=== PATIENT | female | born 1990 | race Caucasian/White ===

== ENCOUNTER → 2020-02-12 07:46 | Outpatient (CLI) | payer OTHER, SELFPAY ==
[2020-02-12 08:06] LABS: Basophils % 0.5 % (0.1-2.0); Eosinophils # 0.1 K/mm3 (0.0-0.4); Eosinophils % 1.5 % (0.1-12.0); Hematocrit 41.2 % (37.0-47.0); Hemoglobin 13.4 g/dL (12.2-16.2); Lymphocytes # 2.8 K/mm3 (0.7-4.5); Mean Corpuscular HGB Conc 32.4 g/dL (31.8-35.4); Mean Corpuscular Hemoglobin 31.1 pg (27.0-31.2); Mean Platelet Volume 8.6 fl (7.4-10.4); Monocytes # 0.4 K/mm3 (0.1-1.0); Monocytes % 5.8 % (1.7-9.3); Neutrophils % 54.2 % (37.0-80.0); Platelet Count 251 K/mm3 (142-424); Red Cell Distribution Width 13.6 % (11.5-17.5); White Blood Count 7.3 K/mm3 (4.8-10.8)
[2020-02-12 09:07] LABS: Alanine Aminotransferase 18 U/L (12-78); Albumin Level 4.7 g/dl (3.5-5.0); Albumin/Globulin Ratio 1.5 (1.1-1.8); Alkaline Phosphatase 101 U/L (38-126); Anion Gap 12.2 mEq/L (5-15); Aspartate Amino Transferase 25 U/L (14-36); Bilirubin,Total 0.3 mg/dl (0.2-1.3); Blood Urea Nitrogen 17 mg/dl (7-17); Calcium 9.8 mg/dl (8.4-10.2); Carbon Dioxide 28 mmol/L (22.0-30.0); Chloride 102 mmol/L (98-107); Chol/HDL Ratio 1.9 (1-3.5); Cholesterol 145 mg/dl (140-200); Estimated Glomerular Filt Rate 99 ml/min (>60); GFR (African American) 120 ML/MIN (>60); Globulin 3.1 g/dL (1.3-3.2); Glucose 92 mg/dl (74-100); HDL Cholesterol 75 mg/dl (40-60); Potassium 4.2 mmoL/L (3.5-5.1); Sodium 138 mmol/L (136-145); Total Protein,Serum 7.8 g/dl (6.3-8.2); Triglycerides 47 mg/dl (30-150); VLDL Cholesterol 9 mg/dL (0-40)
[2020-02-12 09:18] LABS: Direct LDL Cholesterol 70.79 mg/dL (100-129)
[2020-02-12 09:24] LABS: T4 (Thyroxine) 9.6 ug/dl (5.53-11.0)
[2020-02-13 08:13] LABS: Iron 66 ug/dL (27-159); UIBC 204 ug/dL (131-425)
[2020-02-13 11:13] LABS: Iron Saturation 24 % (15-55); Vitamin B12 429 pg/mL (232-1245); Vitamin D 25 Hydroxy 30.9 ng/mL (30.0-100.0)
== END ==
PROVIDERS: Visit Provider Nurse Practitioner Family
DX: M79.606 Pain in leg, unspecified (principal)
CPT/HCPCS: 36415; 80053; 80061; 82607; 82652; 83540; 83550; 84436; 84443; 85025

== ENCOUNTER → 2020-02-17 15:10 | Outpatient (CLI) | payer OTHER, SELFPAY ==
[2020-02-17 16:44] LABS: Coronavirus 19 IgG Antibody Negative (Negative); Coronavirus 19 IgM Antibody Negative (Negative)
== END ==
PROVIDERS: PCP Emergency Medicine; Visit Provider Emergency Medicine
DX: Z03.818 Encounter for observation for suspected exposure to other biological agents ruled out (principal)
CPT/HCPCS: 36415; 86328

== ENCOUNTER → 2020-02-24 08:12 | Outpatient (CLI) | payer OTHER, SELFPAY ==
--- NOTE | 2020-02-24 08:15 | CT_ITS ---
PROCEDURE: CT HEAD/BRAIN WO CON CLINICAL INDICATION: dizzy COMPARISON: No exams were available for comparison TECHNIQUE: Axial images obtained. All CT scans at the facility use one or more dose reduction, viz: automated exposure control, ma/kV adjustment per patient size (including targeted exams where dose is matched to indication, i.e. head), or iterative reconstruction technique. FINDINGS: No midline shift, mass effect, intracranial hemorrhage, hydrocephalus, or extra-axial fluid collection is evident. The calvarium has an unremarkable appearance. No mastoid effusion. No sinus air-fluid level. IMPRESSION: No acute intracranial finding Dictated by: Tai López MD 02/24/2020 08:57 Electronically signed by Tai López MD in [facility] 02/24/2020 08:57
== END ==
PROVIDERS: PCP Emergency Medicine; Visit Provider Nurse Practitioner Family
DX: R42 Dizziness and giddiness (principal); M25.562 Pain in left knee
CPT/HCPCS: 70450

== ENCOUNTER → 2020-03-10 07:19 | Outpatient (CLI) | payer OTHER, SELFPAY ==
--- NOTE | 2020-03-10 07:23 | XR_ITS ---
PROCEDURE: XR KNEE RT 4V CLINICAL INDICATION: knee pain COMPARISON: No exams were available for comparison FINDINGS: No fracture or dislocation. No lytic or blastic change. There is normal mineralization. The joint spaces are well-preserved. No significant degenerative/arthritic changes. No erosive changes evident. Other findings:None. IMPRESSION: No acute findings. Dictated by: Eric Escobar 03/10/2020 09:35 Electronically signed by Eric Escobar in [facility] 03/10/2020 09:35
== END ==
PROVIDERS: PCP Nurse Practitioner Family; Visit Provider Nurse Practitioner Family
DX: M25.561 Pain in right knee (principal)
CPT/HCPCS: 73564

== ENCOUNTER → 2020-03-22 15:18 | Outpatient (CLI) | payer OTHER, SELFPAY ==
[2020-03-22 16:42] LABS: Ferritin 12.1 ng/ml (6.24-137)
== END ==
PROVIDERS: Visit Provider Nurse Practitioner Family
DX: E83.10 Disorder of iron metabolism, unspecified (principal); G25.81 Restless legs syndrome; G47.9 Sleep disorder, unspecified; R53.83 Other fatigue
CPT/HCPCS: 36415; 82728

== ENCOUNTER → 2020-04-04 15:36 | Outpatient (CLI) | payer OTHER, SELFPAY ==
--- NOTE | 2020-04-04 15:41 | US_ITS ---
PROCEDURE: US EXTREMITY RT LIMITED CLINICAL INDICATION: cyst below rt knee Palpable abnormality medial right knee COMPARISON: No exams were available for comparison FINDINGS: Ultrasound performed of the medial aspect of the right knee shows no obvious cystic or solid lesions. IMPRESSION: Unremarkable ultrasound of medial right knee. If there is indeed a palpable abnormality then CT or MRI may provide further evaluation Dictated by: Tai López MD 04/04/2020 16:20 Electronically signed by Tai López MD in [facility] 04/04/2020 16:20
== END ==
PROVIDERS: PCP Nurse Practitioner Family; Visit Provider Nurse Practitioner Family
DX: M25.561 Pain in right knee (principal)
CPT/HCPCS: 76882

== ENCOUNTER → 2020-04-22 10:44 | Outpatient (CLI) | payer BC, OTHER, SELFPAY | PROVIDERS: PCP Nurse Practitioner Family; Visit Provider Nurse Practitioner Family | DX: G47.9 Sleep disorder, unspecified (principal); G25.81 Restless legs syndrome; R53.83 Other fatigue; E83.10 Disorder of iron metabolism, unspecified | CPT/HCPCS: 95806 ==

== ENCOUNTER → 2020-04-29 07:58 | Outpatient (CLI) | payer BC, OTHER, SELFPAY ==
--- NOTE | 2020-04-29 08:05 | MR_ITS ---
PROCEDURE: MR KNEE RT WO CON CLINICAL INDICATION: evaluate for meniscal tear/ injury Entire knee pain. Lump on medial side of knee, put marker on knot. Knee instability. [id number]. X-ray 03-10-20 COMPARISON: CR XR KNEE RT 4V from 03/10/2020 TECHNIQUE: Routine multiplanar multi echo sequences are performed without gadolinium enhancement. FINDINGS: The cruciate ligaments, collateral ligaments patellar tendon, and quadriceps tendon have an unremarkable appearance. No evidence of meniscal tear. The patellar cartilage is well preserved. A marker is placed along the medial aspect of the knee denoting an area palpable concern. Just deep to this area there is a slightly prominent superficial vein. This could account for the palpable abnormality. No other abnormalities are evident. No significant degenerative change. No bone marrow edema or significant effusion. IMPRESSION: 1. No evidence of internal derangement. Essentially negative MRI the knee. 2. Palpable abnormality may correspond to a mildly prominent superficial vein. Dictated by: Tai López MD 04/30/2020 09:09 Tai López MD in [facility] 04/30/2020 09:09
== END ==
PROVIDERS: PCP Nurse Practitioner Family; Visit Provider Orthopaedic Surgery
DX: M25.561 Pain in right knee (principal); S83.241A Other tear of medial meniscus, current injury, right knee, initial encounter; G89.29 Other chronic pain
CPT/HCPCS: 73721

== ENCOUNTER → 2020-09-06 11:54 | Outpatient (CLI) | payer OTHER, SELFPAY ==
[2020-09-06 12:22] LABS: Basophils # 0.1 K/mm3 (0-0.2); Basophils % 0.8 % (0.1-2.0); Eosinophils # 0.1 K/mm3 (0.0-0.4); Eosinophils % 1.1 % (0.1-12.0); Hematocrit 47.1 % (37.0-47.0); Lymphocytes % 32.7 % (10-50); Mean Corpuscular HGB Conc 31.8 g/dL (31.8-35.4); Mean Corpuscular Hemoglobin 30.9 pg (27.0-31.2); Mean Corpuscular Volume 97.1 fl (81-99); Mean Platelet Volume 8.7 fl (7.4-10.4); Monocytes # 0.4 K/mm3 (0.1-1.0); Monocytes % 6.1 % (1.7-9.3); Neutrophils # 3.7 K/mm3 (1.8-7.8); Neutrophils % 59.3 % (37.0-80.0); Platelet Count 243 K/mm3 (142-424); Red Blood Count 4.85 M/mm3 (4.20-5.40); Red Cell Distribution Width 13.7 % (11.5-17.5); White Blood Count 6.2 K/mm3 (4.8-10.8)
[2020-09-06 12:51] LABS: HCG Qualitative, Serum Negative (Negative)
[2020-09-06 13:24] LABS: Coronavirus 19 IgG Antibody Negative (Negative); Coronavirus 19 IgM Antibody Negative (Negative)
== END ==
PROVIDERS: Visit Provider Otolaryngology
DX: Z01.818 Encounter for other preprocedural examination (principal); Z03.818 Encounter for observation for suspected exposure to other biological agents ruled out; D49.2 Neoplasm of unspecified behavior of bone, soft tissue, and skin
CPT/HCPCS: 36415; 84703; 85025; 86328

== ENCOUNTER → 2020-11-09 13:27 | Outpatient (CLI) | payer OTHER, SELFPAY ==
[2020-11-09 14:40] LABS: Basophils # 0.1 K/mm3 (0-0.2); Basophils % 0.8 % (0.1-2.0); Eosinophils # 0.1 K/mm3 (0.0-0.4); Eosinophils % 0.8 % (0.1-12.0); Hematocrit 44.7 % (37.0-47.0); Hemoglobin 14.2 g/dL (12.2-16.2); Lymphocytes # 2.1 K/mm3 (0.7-4.5); Lymphocytes % 25.9 % (10-50); Mean Corpuscular HGB Conc 31.8 g/dL (31.8-35.4); Mean Corpuscular Hemoglobin 30.5 pg (27.0-31.2); Mean Corpuscular Volume 95.8 fl (81-99); Mean Platelet Volume 9.1 fl (7.4-10.4); Monocytes # 0.5 K/mm3 (0.1-1.0); Monocytes % 6.2 % (1.7-9.3); Neutrophils # 5.3 K/mm3 (1.8-7.8); Neutrophils % 66.3 % (37.0-80.0); Platelet Count 255 K/mm3 (142-424); Red Blood Count 4.67 M/mm3 (4.20-5.40); Red Cell Distribution Width 14.2 % (11.5-17.5)
[2020-11-09 15:51] LABS: HCG Qualitative, Serum Negative (Negative)
[2020-11-09 18:08] LABS: Coronavirus 19 IgG Antibody Positive (Negative); Coronavirus 19 IgM Antibody Negative (Negative)
== END ==
PROVIDERS: Visit Provider Otolaryngology
DX: Z01.818 Encounter for other preprocedural examination (principal); Z20.822 Contact with and (suspected) exposure to COVID-19; Z86.16 Personal history of COVID-19; D49.2 Neoplasm of unspecified behavior of bone, soft tissue, and skin
CPT/HCPCS: 36415; 84703; 85025; 86328

== ENCOUNTER 2020-11-10 07:04 | Day surgery (SDC) | payer OTHER, SELFPAY ==
[2020-11-03 10:23] VITALS: BMI 25.5
[2020-11-10 07:17] VITALS: BP 110/70; PULSE 90; RESP 18; TEMP 36.2; O2SAT 99
--- NOTE | 2020-11-10 08:15 | HMH.ANESCL ---
[facility] Anesthesia Checklist - Structural Data Admitted From: Home Planned Operative Procedure/s: excision neoplasm face Consent for Planned Operative Procedure(s) Verified: Yes - Additional verifications Anesthesia Reactions: No Hx Blood Transfusions: No Blood Transfusion Reaction: No - Airway Assessment C-Spine Mobility Assessed: Yes TMJ Mobility Assessed: Yes Dentition: Good Dentition - Neurological Assessment Level of Consciousness: Awake, Alert, Appropriate - Anesthesia Plan Anesthesia Risk discussed: Yes Anesthesia Plan: Verified ASA Class: I Anesthesia Type: MAC [facility] History I have reviewed the patient's past medical history: Yes Medical History: Reports:: Anxiety Denies:: Cancer, Diabetes Mellitus Type 1, Diabetes Mellitus Type 2, Internal Pacemaker, MRSA, Seizures *Have you ever received a pneumonia vaccine?: No *Have you received a flu vaccine this season?: No Other Medical History: Reports: Anemia, Other. Denies: Blood Transfusion Reaction Anesthesia experience/problems:: none Laterality Cases: Bilateral: Tonsillectomy Other Surgeries: Yes: Cholecystectomy, Other. No: Pacemaker Amputation: No Fractures: No - *Social History Last grade of school completed: Some college Smoking Status: Never smoker Alcohol Intake: current Alcohol Intake Frequency:: holidays/special occasions only Substance Use Type: denies use *Occupational Status:: unemployed Housing: house Household Members: children *Travel in the last 8 weeks: None - Psychiatric History Pschychiatric History:: Reports:: Anxiety Family Hx:: Cancer, Coronary Artery Disease, Heart Attack, Hyperlipidemia, Hypertension, Kidney Disease, Stroke, Thyroid Disorder, Substance abuse, Alcoholism, Mental illness
--- NOTE | 2020-11-10 08:55 | P.OP_ITS ---
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 The lesion was located on the upper part of the right cheek just below the right lower eyelid the lesion was marked out and the shahrzad out was incised and the lesion was excised and submitted. Bleeding was stopped with bipolar cautery. Blood loss was less than 2 cc. Anterior and posterior incisions were made and a tissue rearrangement geometric plastic repair was done with 5-0 nylon sutures. Surgicel dressing was applied. Patient tolerated the procedure well and was sent to recovery in good general condition. Condition: stable Disposition: PACU Complications:: none
[2020-11-10 08:57] VITALS: BP 98/65; PULSE 89; RESP 18; TEMP 36.5; O2SAT 99
[2020-11-10 09:07] VITALS: BP 132/79; PULSE 87; RESP 18; O2SAT 98
[2020-11-10 09:22] VITALS: BP 101/62; PULSE 86; RESP 18; O2SAT 97
== END 2020-11-10 09:26 | disposition home or self-care (01) ==
LOC: OR 07:05
PROVIDERS: PCP Nurse Practitioner Family; Visit Provider Otolaryngology
PROC: (CPT 14040; principal; 2020-11-10 08:30)
DX: C44.319 Basal cell carcinoma of skin of other parts of face (principal); F41.9 Anxiety disorder, unspecified; D64.9 Anemia, unspecified; Z80.9 Family history of malignant neoplasm, unspecified; Z82.3 Family history of stroke; Z82.49 Family history of ischemic heart disease and other diseases of the circulatory system; Z83.438 Family history of other disorder of lipoprotein metabolism and other lipidemia; Z84.1 Family history of disorders of kidney and ureter; Z81.1 Family history of alcohol abuse and dependence; Z79.899 Other long term (current) drug therapy
CPT/HCPCS: 14040; 96374; 96375

== ENCOUNTER 2020-11-24 12:59 | Emergency (ER) | payer OTHER, SELFPAY ==
--- NOTE | 2020-11-24 13:14 | PC.NURSE ---
Patient came to have sutures removed for right side of face just undereye and had small square bandaid in place, Patient reported that one of the stitches had fell out and she only had two sutures, Upon removing the bandaid noted small wet scabbing stuck to bandaid with both sutures out and stuck to the bandaid and small open area on face no sutures where in tack to be removed they was in moist scabbing that was stuck to the pad of the bandaid had been in place for about [address] Tee office and spoke with staff to inform them of finding and going to place small strip on area to help with healing. and office staff advised patient to followup on Saturday for re-evaluation
[2020-11-24 13:20] VITALS: BP 119/77; PULSE 96; RESP 14; TEMP 36.6; O2SAT 99; BMI 25.5
[2020-11-24 13:29] VITALS: BP 120/78; PULSE 90; RESP 16; TEMP 36.6
== END 2020-11-24 13:44 | disposition home or self-care (01) ==
LOC: UTC 13:02
PROVIDERS: Emergency Provider Nurse Practitioner; PCP Nurse Practitioner Family
DX: C44.319 Basal cell carcinoma of skin of other parts of face (principal)

== ENCOUNTER → 2021-10-04 12:33 | Outpatient (CLI) | payer OTHER, SELFPAY | PROVIDERS: Visit Provider Nurse Practitioner | DX: Z20.822 Contact with and (suspected) exposure to COVID-19 (principal) | CPT/HCPCS: 87086; 87088; 87186; C9803; U0003; U0005 ==

== ENCOUNTER → 2021-10-04 18:26 | Outpatient (CLI) | payer OTHER, SELFPAY | PROVIDERS: Visit Provider Nurse Practitioner Family | DX: N39.0 Urinary tract infection, site not specified (principal); B96.20 Unspecified Escherichia coli [E. coli] as the cause of diseases classified elsewhere | CPT/HCPCS: 87086; 87088; 87186 ==

== ENCOUNTER → 2021-12-05 14:18 | Outpatient (CLI) | payer OTHER, SELFPAY ==
[2021-12-05 15:04] LABS: Basophils # 0.1 K/mm3 (0-0.2); Eosinophils # 0.1 K/mm3 (0.0-0.4); Hematocrit 44.5 % (37.0-47.0); Hemoglobin 14.1 g/dL (12.2-16.2); Lymphocytes # 2.4 K/mm3 (0.7-4.5); Lymphocytes % 30.2 % (10-50); Mean Corpuscular HGB Conc 31.7 g/dL (31.8-35.4); Mean Corpuscular Hemoglobin 30.6 pg (27.0-31.2); Mean Corpuscular Volume 96.6 fl (81-99); Mean Platelet Volume 9.1 fl (7.4-10.4); Monocytes # 0.5 K/mm3 (0.1-1.0); Monocytes % 6.9 % (1.7-9.3); Neutrophils # 4.8 K/mm3 (1.8-7.8); Neutrophils % 60.9 % (37.0-80.0); Platelet Count 281 K/mm3 (142-424); Red Cell Distribution Width 13.7 % (11.5-17.5); White Blood Count 7.9 K/mm3 (4.8-10.8)
[2021-12-05 16:16] LABS: Alanine Aminotransferase 26 U/L (12-78); Albumin Level 4.2 g/dl (3.5-5.0); Albumin/Globulin Ratio 1.6 (1.1-1.8); Alkaline Phosphatase 91 U/L (38-126); Anion Gap 9.2 mEq/L (5-15); Aspartate Amino Transferase 29 U/L (14-36); Bilirubin,Total 0.3 mg/dl (0.2-1.3); Blood Urea Nitrogen 13 mg/dl (7-17); Calcium 9.5 mg/dl (8.4-10.2); Carbon Dioxide 31 mmol/L (22.0-30.0); Chloride 104 mmol/L (98-107); Chol/HDL Ratio 2.8 (1-3.5); Cholesterol 175 mg/dl (140-200); Estimated Glomerular Filt Rate 84 ml/min (>60); GFR (African American) 101 ML/MIN (>60); Globulin 2.7 g/dL (1.3-3.2); Glucose 91 mg/dl (74-100); HDL Cholesterol 63 mg/dl (40-60); Potassium 4.2 mmoL/L (3.5-5.1); Sodium 140 mmol/L (136-145); Total Protein,Serum 6.9 g/dl (6.3-8.2); Triglycerides 97 mg/dl (30-150); VLDL Cholesterol 19 mg/dL (0-40)
[2021-12-05 16:27] LABS: Direct LDL Cholesterol 77.27 mg/dL (100-129)
[2021-12-05 16:33] LABS: T4 (Thyroxine) 7.6 ug/dl (5.53-11.0)
== END ==
PROVIDERS: Visit Provider Nurse Practitioner Family
DX: R63.5 Abnormal weight gain (principal)
CPT/HCPCS: 36415; 80053; 80061; 84436; 84443; 85025

== ENCOUNTER → 2022-01-17 10:43 | Outpatient (CLI) | payer OTHER, SELFPAY | PROVIDERS: Visit Provider Nurse Practitioner Family | DX: R35.0 Frequency of micturition (principal) | CPT/HCPCS: 87086 ==

== ENCOUNTER → 2022-04-23 15:44 | Outpatient (CLI) | payer OTHER, SELFPAY ==
[2022-04-23 17:50] LABS: HCG,Quantitative 4768 mIU/ml (0-5.42)
== END ==
PROVIDERS: PCP Emergency Medicine; Visit Provider Obstetrics & Gynecology
DX: N92.6 Irregular menstruation, unspecified (principal)
CPT/HCPCS: 36415; 84702

== ENCOUNTER → 2022-05-07 06:40 | Outpatient (CLI) | payer OTHER, SELFPAY | PROVIDERS: Visit Provider Obstetrics & Gynecology | DX: Z34.90 Encounter for supervision of normal pregnancy, unspecified, unspecified trimester (principal) | CPT/HCPCS: 87086 ==

== ENCOUNTER → 2022-05-09 14:21 | Outpatient (CLI) | payer OTHER, SELFPAY ==
[2022-05-09 15:07] LABS: Basophils # 0.1 K/mm3 (0-0.2); Basophils % 0.6 % (0.1-2.0); Eosinophils # 0.1 K/mm3 (0.0-0.4); Eosinophils % 0.6 % (0.1-12.0); Hematocrit 44.6 % (37.0-47.0); Hemoglobin 13.5 g/dL (12.2-16.2); Lymphocytes # 1.9 K/mm3 (0.7-4.5); Lymphocytes % 19.3 % (10-50); Mean Corpuscular HGB Conc 30.3 g/dL (31.8-35.4); Mean Corpuscular Hemoglobin 30.1 pg (27.0-31.2); Mean Corpuscular Volume 99.3 fl (81-99); Mean Platelet Volume 9.1 fl (7.4-10.4); Monocytes # 0.4 K/mm3 (0.1-1.0); Monocytes % 4.1 % (1.7-9.3); Neutrophils # 7.3 K/mm3 (1.8-7.8); Neutrophils % 75.4 % (37.0-80.0); Platelet Count 306 K/mm3 (142-424); Red Blood Count 4.49 M/mm3 (4.20-5.40); Red Cell Distribution Width 14.1 % (11.5-17.5); White Blood Count 9.7 K/mm3 (4.8-10.8)
[2022-05-11 09:46] LABS: Rubella Antibodies, IgG 1.04 index (Immune >0.99)
[2022-05-11 11:16] LABS: HIV Screen 4th Generation wRfx Non Reactive (Non Reactive); Hepatitis B Surface Antigen Negative (Negative); Hepatitis C Antibody <0.1 s/co ratio (0.0-0.9); Progesterone 17.1 ng/mL (.); Rapid Plasma Reagin Ab Titer Non Reactive (NonRea<1:1)
== END ==
PROVIDERS: PCP Emergency Medicine; Visit Provider Obstetrics & Gynecology
DX: Z34.90 Encounter for supervision of normal pregnancy, unspecified, unspecified trimester (principal); N92.6 Irregular menstruation, unspecified
CPT/HCPCS: 36415; 84144; 84702; 85025; 86592; 86703; 86762; 86850; 86870; 87340; 87380; G0432

== ENCOUNTER → 2022-05-28 13:23 | Outpatient (CLI) | payer OTHER, SELFPAY | PROVIDERS: PCP Emergency Medicine; Visit Provider Obstetrics & Gynecology | DX: Z01.84 Encounter for antibody response examination (principal) | CPT/HCPCS: 36415 ==

== ENCOUNTER 2022-06-12 17:23 | Emergency (ER) | payer OTHER, SELFPAY ==
[2022-06-12 17:30] VITALS: BP 126/83; PULSE 109; RESP 18; TEMP 36.7; O2SAT 100; BMI 32.4
--- NOTE | 2022-06-12 17:58 | US_ITS ---
PROCEDURE INFORMATION: Exam: US , Transvaginal Exam date and time: 06/12/2022 7:04 PM Age: 31 years old Clinical indication: Lmp or gestational age (in weeks): Lmp March 16, 2022; Other: Vag bleeding today and cramping; ; Additional info: , pain, bleeding TECHNIQUE: Imaging protocol: Real-time transvaginal obstetrical ultrasound of the maternal pelvis with image documentation. Transvaginal imaging was used for better evaluation of the fetus, adnexa, and/or cervix. COMPARISON: US EXTREMITY RT LIMITED 04/04/2020 3:44 PM FINDINGS: Gestation: Single viable intrauterine gestation measuring twelve weeks and 1 day. Tiny yolk sac identified. heart rate: heart rate 161 bpm. Placenta: Placenta posterior. BIOMETRY: Biparietal diameter (BPD): 12 weeks 6 days. MATERNAL: Cervix: Tiny amount of fluid within the cervical canal. IMPRESSION: Single viable intrauterine gestation 12 weeks 1 day and heart rate 161 bpm. No abnormalities noted at this time. Tiny amount of fluid within the cervical canal.
[2022-06-12 18:03] VITALS: BMI 31.6
--- NOTE | 2022-06-12 18:14 | PC.NURSE ---
called rad for u/s order
[2022-06-12 18:15] VITALS: PULSE 100; O2SAT 100
--- NOTE | 2022-06-12 18:17 | PC.NURSE ---
US TECH CALLED IN FOR TRANSVAG , URINE AND BLOOD SENT TO LAB
[2022-06-12 18:20] LABS: Microscopic, Urine URINE MICROSCOPIC (MICROSCOPIC)
[2022-06-12 18:23] LABS: Appearance,Urine SL CLOUDY (Clear); Bilirubin,Urine Negative (Negative); Blood, Urine 3+ (Negative); Color,Urine YELLOW (Yellow); Glucose,Urine (UA) Negative (Negative); Ketones,Urine Negative (Negative); Leukocyte Esterase,Urine Negative (Negative); Nitrate,Urine Negative (Negative); Protein,Urine TRACE (Negative); Specific Gravity, Urine >= 1.030 (1.005-1.030); Urobilinogen,Urine 0.2 EU/dl (0.2)
[2022-06-12 18:25] LABS: Basophils # 0.1 K/mm3 (0-0.2); Basophils % 0.5 % (0.1-2.0); Eosinophils # 0.1 K/mm3 (0.0-0.4); Eosinophils % 0.9 % (0.1-12.0); Hematocrit 39.4 % (37.0-47.0); Hemoglobin 12.8 g/dL (12.2-16.2); Lymphocytes # 2.4 K/mm3 (0.7-4.5); Mean Corpuscular HGB Conc 32.5 g/dL (31.8-35.4); Mean Corpuscular Hemoglobin 30.7 pg (27.0-31.2); Mean Corpuscular Volume 94.7 fl (81-99); Mean Platelet Volume 8.7 fl (7.4-10.4); Monocytes # 0.5 K/mm3 (0.1-1.0); Monocytes % 4.4 % (1.7-9.3); Neutrophils # 8.8 K/mm3 (1.8-7.8); Neutrophils % 74.1 % (37.0-80.0); Platelet Count 268 K/mm3 (142-424); Red Blood Count 4.16 M/mm3 (4.20-5.40); White Blood Count 11.9 K/mm3 (4.8-10.8)
--- NOTE | 2022-06-12 18:33 | HMH.EDGENADL ---
Discharge Plan Disposition Patient Disposition: Home, Self-Care Condition: Good Prescriptions Prescriptions: New cephalexin 500 mg capsule 500 mg PO BID 7 Days Qty: 14 0RF No Action Classic 28 mg iron- 800 mcg tablet 1 tab PO DAILY Qty: 30 11RF Referrals Follow up/Referrals: Akiko Miller PA [Primary Care Provider] - See instructions Clinical Impressions Clinical Impression: Threatened , Asymptomatic bacteriuria Instructions Patient Instructions: DI for Vaginal Bleeding Discharge ED Provider: José Luis Espinoza General Adult HPI General Chief complaint: Vaginal Bleeding Stated complaint: abd. pain Time Seen by Provider: 06/12/22 18:00 Mode of Arrival: Ambulatory Source of Information: Patient Limitations: No Limitations Description of Symptoms (Recalled from ER Triage Doc. by RN): pt to ed c/o lower abd cramping and vaginal bleeding. pt states she is approx 13w . pt reports that she spoke with her OB (Dr Kohler) who advised her to be seen. pt states a hx of two previous miscarriages. History of Present Illness HPI narrative: This is a 31-year-old female presented to the emergency department with a complaint of lower abdominal cramping and vaginal bleeding. The patient states that it started this morning. She bled through approximately 3 pads. She is currently 13 weeks . She is a G6, P3. Patient states that the pain was dull in nature. It is thus resolved since presenting to the emergency department. She is no longer bleeding at this time. She denies any fevers or chills. No headache or change in vision. No focal weakness. No chest pain or shortness of breath. Related Data Previous Rx's Medication Instructions Recorded vits no.126-ferrous fum 1 tab PO DAILY #30 tabs 05/07/22 28 mg iron-folic acid 800 mcg tablet (Classic ) cephalexin 500 mg capsule 500 mg PO BID 7 days #14 caps 06/12/22 Allergies Allergy/AdvReac Type Severity Reaction Status Date / Time No Known Allergies Allergy Verified 05/29/22 09:26 [facility] Social History Smoking Status: Never smoker second hand exposure: No alcohol intake: current substance use type: denies use current occupational status: employed Travel in the last 8 weeks: None household members: children housing: house 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 current occupational exposures/hazards: No caffeine: Yes ROS Obtained: Yes All systems reviewed & no additional complaints except as documented and Yes Systems reviewed as appropriate & no additional complaints except as documented Constitutional Constitutional: Denies fever(s) and Denies headache(s) ENT Ears, Nose, Mouth, and Throat: Denies headache(s) Cardiovascular Cardiovascular: Denies chest pain and Denies dyspnea Respiratory Respiratory: Denies dyspnea Gastrointestinal Gastrointestingal: Reports abdominal pain Genitourinary Female Genitourinary: Reports other (vaginal bleeding) Musculoskeletal Musculoskeletal: Denies arthralgias Integumentary/Breasts Skin/Breast: Denies rash Neurologic Neurologic: Denies headache(s) Physical Exam General General appearance: alert and in no apparent distress Eye Eye exam: Present normal appearance, PERRL and EOMI Respiratory Respiratory exam: Present normal lung sounds bilaterally; Absent respiratory distress Cardiovascular Cardiovascular exam: Present regular rate and normal rhythm Abdominal Exam Abdominal exam: Present soft; Absent distention, guarding, rebound or mass Abdominal tenderness: Present RLQ, LLQ and mild Extremities Exam Extremities exam: Present normal inspection and full ROM; Absent tenderness Neurological Exam Neurological exam: Present oriented X3, CN II-XII intact and normal gait Medical Decision Making Medical Records Medical records reviewed: Yes I reviewed the patient's medical records
[2022-06-12 18:36] LABS: Chloride 104 mmol/L (98-107); Potassium 3.8 mmoL/L (3.5-5.1); Sodium 138 mmol/L (136-145)
[2022-06-12 18:39] LABS: Alanine Aminotransferase 40 U/L (12-78); Albumin/Globulin Ratio 1.3 (1.1-1.8); Alkaline Phosphatase 121 U/L (38-126); Anion Gap 11.8 mEq/L (5-15); Aspartate Amino Transferase 42 U/L (14-36); Blood Urea Nitrogen 12 mg/dl (7-17); Carbon Dioxide 26 mmol/L (22.0-30.0); Creatinine Clearance Estimated 236 mL/min (50-200); Estimated Glomerular Filt Rate 144 ml/min (>60); GFR (African American) 174 ML/MIN (>60)
[2022-06-12 18:40] LABS: Calcium 8.6 mg/dl (8.4-10.2); Glucose 99 mg/dl (74-100)
[2022-06-12 18:41] LABS: Bilirubin,Total < 0.1 mg/dl (0.2-1.3)
[2022-06-12 18:47] VITALS: BP 115/76; PULSE 96; RESP 18; O2SAT 100
[2022-06-12 18:51] LABS: Bacteria,Urine 1+ /lpf; WBC,Urine Occasional #/hpf (0-3)
--- NOTE | 2022-06-12 18:53 | PC.NURSE ---
no needs voiced by pt.
--- NOTE | 2022-06-12 18:55 | PC.NURSE ---
PT GOING FOR TRANSVAG US
--- NOTE | 2022-06-12 18:57 | PC.NURSE ---
rad here to take pt
[2022-06-12 20:28] LABS: HCG,Quantitative 50021 mIU/ml (0-5.42)
[2022-06-12 20:43] VITALS: BP 128/78; PULSE 91; RESP 18; TEMP 36.7; O2SAT 99
== END 2022-06-12 20:35 | disposition home or self-care (01) ==
PROVIDERS: Emergency Provider Emergency Medicine; PCP Physician Assistant; Referring Provider Obstetrics & Gynecology
DX: O26.851 Spotting complicating pregnancy, first trimester (principal); O99.611 Diseases of the digestive system complicating pregnancy, first trimester; O26.891 Other specified pregnancy related conditions, first trimester; Z3A.12 12 weeks gestation of pregnancy; Z79.899 Other long term (current) drug therapy
CPT/HCPCS: 76817; 80053; 81001; 84702; 85025; 99284

== ENCOUNTER → 2022-06-18 16:10 | Outpatient (CLI) | payer OTHER, SELFPAY ==
[2022-06-20 21:12] LABS: Neisseria gonorrhoeae, NAA Negative (Negative)
== END ==
PROVIDERS: Visit Provider Obstetrics & Gynecology
DX: Z34.90 Encounter for supervision of normal pregnancy, unspecified, unspecified trimester (principal)
CPT/HCPCS: 87491; 87591

== ENCOUNTER → 2023-06-24 10:27 | Outpatient (CLI) | payer OTHER, SELFPAY ==
[2023-06-24 19:23] LABS: Basophils % 0.6 % (0.1-2.0); Eosinophils # 0.1 K/mm3 (0.0-0.4); Eosinophils % 1.8 % (0.1-12.0); Hematocrit 43.8 % (37.0-47.0); Hemoglobin 13.9 g/dL (12.2-16.2); Mean Corpuscular HGB Conc 31.6 g/dL (31.8-35.4); Mean Corpuscular Hemoglobin 29.1 pg (27.0-31.2); Mean Corpuscular Volume 91.9 fl (81-99); Mean Platelet Volume 10.3 fl (7.4-10.4); Monocytes # 0.6 K/mm3 (0.1-1.0); Monocytes % 8.3 % (1.7-9.3); Neutrophils # 3.8 K/mm3 (1.8-7.8); Neutrophils % 58.3 % (37.0-80.0); Platelet Count 320 K/mm3 (142-424); Red Blood Count 4.77 M/mm3 (4.20-5.40); Red Cell Distribution Width 14.1 % (11.5-17.5); White Blood Count 6.6 K/mm3 (4.8-10.8)
[2023-06-24 19:47] LABS: Hemoglobin A1C 5.1 % (4.0-6.0)
[2023-06-24 20:12] LABS: 25-OH Vitamin D, Total 50.1 ng/mL (30-100)
[2023-06-24 20:19] LABS: Alanine Aminotransferase 29 U/L (12-78); Albumin Level 4.1 g/dl (3.5-5.0); Albumin/Globulin Ratio 1.3 (1.1-1.8); Anion Gap 11.2 mEq/L (5-15); Aspartate Amino Transferase 26 U/L (14-36); Bilirubin,Total 0.2 mg/dl (0.2-1.3); Blood Urea Nitrogen 12 mg/dl (7-17); Calcium 9.5 mg/dl (8.4-10.2); Carbon Dioxide 27 mmol/L (22.0-30.0); Chloride 107 mmol/L (98-107); Estimated Glomerular Filt Rate 116 ml/min (>60); GFR (African American) 140 ML/MIN (>60); Globulin 3.1 g/dL (1.3-3.2); Glucose 93 mg/dl (74-100); Potassium 4.2 mmoL/L (3.5-5.1); Sodium 141 mmol/L (136-145); Total Protein,Serum 7.2 g/dl (6.3-8.2); Triglycerides 121 mg/dl (30-150)
[2023-06-24 20:20] LABS: Alkaline Phosphatase 119 U/L (38-126); Chol/HDL Ratio 3.6 (1-3.5); Cholesterol 153 mg/dl (140-200); HDL Cholesterol 42 mg/dl (40-60); VLDL Cholesterol 24 mg/dL (0-40)
[2023-06-24 20:49] LABS: Thyroid Stimulating Hormone < 0.02 uIU/mL (0.465-4.68)
[2023-06-24 21:08] LABS: Vitamin B12 351 pg/mL (239-931)
[2023-06-24 22:03] LABS: Ferritin 10.1 ng/ml (6.24-137)
== END ==
PROVIDERS: PCP Internal Medicine; Visit Provider Internal Medicine
DX: Z00.00 Encounter for general adult medical examination without abnormal findings (principal); Z79.899 Other long term (current) drug therapy; E66.9 Obesity, unspecified; Z68.30 Body mass index [BMI] 30.0-30.9, adult
CPT/HCPCS: 80053; 80061; 82306; 82607; 82728; 83036; 84443; 85025

== ENCOUNTER 2024-01-05 10:46 | Emergency (ER) | payer OTHER, SELFPAY ==
[2024-01-05] VITALS (9 sets, daily range): BP systolic 102–156; BP diastolic 67–108; PULSE 87–112; RESP 16–18; TEMP 36.7; O2SAT 97–100; BMI 29.0
[2024-01-05 11:08] LABS: Appearance,Urine SL CLOUDY (Clear); Bilirubin,Urine Negative (Negative); Blood, Urine Negative (Negative); Color,Urine YELLOW (Yellow); Glucose,Urine (UA) Negative (Negative); Ketones,Urine Negative (Negative); Leukocyte Esterase,Urine Negative (Negative); Microscopic, Urine URINE MICROSCOPIC (MICROSCOPIC); Nitrate,Urine Negative (Negative); Protein,Urine Negative (Negative); Specific Gravity, Urine 1.025 (1.005-1.030); Urobilinogen,Urine 0.2 EU/dl (0.2)
[2024-01-05 11:21] LABS: Bacteria,Urine 1+ /lpf; Mucus,Urine Trace /lpf
--- NOTE | 2024-01-05 11:55 | HMH.EDGENADL ---
Discharge Plan Disposition Patient Disposition: Home, Self-Care Condition: Good Prescriptions Prescriptions: New methocarbamol 750 mg tablet 750 mg PO TID Qty: 90 0RF ketorolac 10 mg tablet 10 mg PO Q8H PRN (Reason: pain) 5 Days Qty: 14 0RF Discontinued tizanidine 2 mg capsule 2 mg PO TID PRN (Reason: muscle spasticity) 30 Days Qty: 90 2RF No Action venlafaxine 37.5 mg capsule,extended release 24hr 37.5 mg PO DAILY 30 Days Qty: 30 2RF phentermine [Adipex-P] 37.5 mg tablet 37.5 mg PO DAILY Qty: 30 0RF Rx Instructions: must administer 30 minutes before or 1-2 hours after breakfast metformin 500 mg tablet extended release 24 hr See Rx Instructions .ROUTE .COMPLEX Qty: 90 0RF Dose Instruction: TAKE 1 TABLET BY MOUTH DAILY Rx Instructions: TAKE 1 TABLET BY MOUTH DAILY Referrals Follow up/Referrals: Wilson Wallis DO [Primary Care Provider] - See instructions Activity Restrictions/Add. Instructions Additional Instructions/Restrictions: As we discussed, your CT imaging was reassuring in regard to an alternative explanation for your pain. I have prescribed a Toradol and a different class of muscle relaxer. Please follow-up with your primary care physician. Please return with any new or worsening symptoms. Clinical Impressions Clinical Impression: Ataxia Stand Alone Forms Stand Alone Forms: Work/School Release Instructions Patient Instructions: DI for Low Back Pain Discharge ED Provider: Cb Valencia Adult HPI General Chief complaint: Back Pain/Injury Stated complaint: abd and back pain Time Seen by Provider: 01/05/24 11:55 Mode of Arrival: Ambulatory Source of Information: Patient Limitations: No Limitations Description of Symptoms (Recalled from ER Triage Doc. by RN): Patient reports recent UTI. Then on Saturday she began to have mid to upper back pain. States it is a stabbing pain that has continued to get worse. States that it hurts more when she moves and is more of a burning pain when she isn't moving. History of Present Illness HPI narrative: This patient presents for evaluation of left-sided thoracic back pain Onset: Gradual Location: Left side of back below scapula, lateral to midline Duration: Several days, possibly precipitated by cleaning out her refrigerator Characteristic: Achy Alleviating/Aggrivating Factors: Positional, working, taking a deep breath Radiation: None Timing: Constant Severity: Moderate, occasionally severe Associated symptoms: None ROS: Denies hemoptysis, leg pain, leg swelling, shortness of breath, sick contacts, midline back pain, blood thinner or OCP usage. No history of similar symptoms. Denies chest pain Please note that above description of symptoms, in this electronic medical record under categorization of recalled from ER triage doctor by RN are reflective of an initial nursing assessment, however, is not reflective of my full history and physical exam that was personally taken and clarified. Consequentially, this preceding description of symptoms, which may include the patient's categorized chief complaint in the EMR, do not reflect my personal clinical impression, and the ultimate description of history of present illness and patient stated complaints should be deferred to this section of the note. Unless stated otherwise or congruent with this section of the note, additional signs, symptoms, or incongruence should be interpreted as inaccurate with my clinical impression. Related Data Previous Rx's Medication Instructions Recorded venlafaxine 37.5 mg 37.5 mg PO DAILY 30 days #30 caps 06/24/23 capsule,extended release 24 hr phentermine 37.5 mg tablet 37.5 mg PO DAILY #30 tabs 07/30/23 (Adipex-P) metformin 500 mg tablet,extended See Rx Instructions .Route 08/13/23 release 24 hr .COMPLEX #90 tabs ketorolac 10 mg tablet 10 mg PO Q8H PRN pain 5 days #14 01/05/24 tabs methocarbamol 750 mg tablet 750 mg PO TID #90 tabs 01/05/24 Allergies Allergy/AdvReac Type Severity Reaction Status Date / Time No Known Allergies Allergy Verified 07/30/23 15:54 [facility] Disclaimer: The information contained in this section may have been updated after the patient was seen, as this information can be updated by other users. 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 current occupational exposures/hazards: No caffeine: Yes ROS Obtained: Yes other As per HPI Physical Exam General General appearance: alert and in no apparent distress Head Head exam: atraumatic and normocephalic Eye Eye exam: Present normal appearance Neck Neck exam: Present normal inspection Chest Chest inspection: Present normal inspection and symmetric chest wall rise Respiratory Respiratory exam: Present normal lung sounds bilaterally; Absent respiratory distress Cardiovascular Cardiovascular exam: Present regular rate and tachycardia Abdominal Exam Abdominal exam: Present soft Back Exam Back exam: Present other (No midline tenderness to palpation, left-sided back pain, inferior to the scapular area, not overtly reproducible to palpation) Neurological Exam Neurological exam: Present alert and oriented X3 Psychiatric Psychiatric exam: Present normal affect and normal mood Skin Skin exam: Present warm and dry Medical Decision Making Medical Records Medical records reviewed: Yes I reviewed the patient's medical records. Uziel Inquiry Pt receiving controlled substance: No Vital Signs: 01/05/24 10:47 01/05/24 11:30 01/05/24 12:00 Temperature 98.1 F Temperature Source Oral Pulse Rate 96 H 90 Pulse Rate [Radial] 112 H Respiratory Rate 16 16 Blood Pressure 109/82 L 112/69 Blood Pressure [Right Arm] 156/108 H Blood Pressure Mean 89 Blood Pressure Mean [Right Arm] 124 Blood Pressure Source Blood Pressure Source [Right Arm] Automatic Cuff Blood Pressure Position Blood Pressure Position [Right Arm] Sitting 02 Sat by Pulse Oximetry 100 98 100 Oxygen Delivery Method Room Air 01/05/24 12:30 01/05/24 13:00 01/05/24 14:00 Temperature Temperature Source Pulse Rate 95 H 99 H 89 Pulse Rate [Radial] Respiratory Rate 16 Blood Pressure 115/82 106/70 L 117/77 Blood Pressure [Right Arm] Blood Pressure Mean 85 Blood Pressure Mean [Right Arm] Blood Pressure Source Blood Pressure Source [Right Arm] Blood Pressure Position Blood Pressure Position [Right Arm] 02 Sat by Pulse Oximetry 98 97 100 Oxygen Delivery Method Room Air Room Air 01/05/24 14:30 01/05/24 15:00 01/05/24 15:37 Temperature 98.0 F Temperature Source Oral Pulse Rate 98 H 94 H 87 Pulse Rate [Radial] Respiratory Rate 16 16 18 Blood Pressure 115/80 110/76 102/67 L Blood Pressure [Right Arm] Blood Pressure Mean 90 85 Blood Pressure Mean [Right Arm] Blood Pressure Source Automatic Cuff Blood Pressure Source [Right Arm] Blood Pressure Position Sitting Blood Pressure Position [Right Arm] 02 Sat by Pulse Oximetry 99 100 Oxygen Delivery Method Lab Data Lab Results 01/05/24 10:53: Urine Color Yellow, Urine Appearance Sl cloudy, Urine pH 6.0, Ur Specific [place] 1.025, Urine Protein Negative, Urine Glucose (UA) Negative, Urine Ketones Negative, Urine Blood Negative, Urine Nitrate Negative, Urine Bilirubin Negative, Urine Urobilinogen 0.2, Ur Leukocyte Esterase Negative, Urine RBC None, Urine WBC 3-5, Ur Squamous Epith Cells 5-10, Urine Bacteria 1+, Urine Mucus Trace 01/05/24 12:39: WBC 9.2, RBC 4.57, Hgb 13.9, Hct 44.1, MCV 96.6, MCH 30.5, MCHC 31.6 L, RDW 14.1, Plt Count 251, MPV 9.0, Neut % (Auto) 70.2, Lymph % (Auto) 22.7, [place] % (Auto) 5.3, Eos % (Auto) 1.0, Baso % (Auto) 0.9, Neut # (Auto) 6.4, Lymph # (Auto) 2.1, [place] # (Auto) 0.5, Eos # (Auto) 0.1, Baso # (Auto) 0.1, PT 10.2, INR 0.94, Sodium 140, Potassium 4.1, Chloride 107, Carbon Dioxide 29, Anion Gap 8.1, BUN 12, Creatinine 0.80, Estimated Creat Clear 133, Estimated GFR 83, Est GFR ( Amer) 100, Glucose 99, Calcium 9.0, Total Bilirubin 0.5, AST 45 H, ALT 34, Alkaline Phosphatase 93, Total Protein 7.1, Albumin 4.1, Globulin 3.0, Albumin/Globulin Ratio 1.4, Serum HCG, Qual Negative 01/05/24 12:39 01/05/24 12:39 Orders (Tests/Meds): ED MEDICATIONS Discontinued Medications Generic Name Dose Route Start Last Admin Trade Name Freq PRN Reason Stop Dose Admin Iopamidol 75 ml 01/05/24 13:26 01/05/24 13:28 Iopamidol-370 (76%);100ml Bottle IV 01/05/24 13:27 75 ml ONCE ONE Administration Ketorolac Tromethamine 15 mg 01/05/24 12:12 01/05/24 12:43 Ketorolac 30mg/Ml Vial IV 01/05/24 12:13 15 mg ONCE ONE Administration Sodium Chloride 50 ml 01/05/24 13:26 01/05/24 13:28 0.9 % Sodium Chloride 50 Ml Vial IV 01/05/24 13:27 50 ml ONCE ONE Administration Sodium Chloride 10 ml 01/05/24 13:26 01/05/24 13:28 Sodium Chloride 0.9% 10ml Syr (Rad Only) IV 02/04/24 13:25 10 ml NEEDED PRN Administration Maintain IV Site ORDERS Category Date Time Status CTA Chest [CT angio chest PE protocol] Stat Cat Scan 01/05/24 12:12 Completed CBC w/Auto Diff [Complete Blood Count Auto Diff] Stat Lab 01/05/24 12:39 Completed CMP [Comprehensive Metabolic Panel] Stat Lab 01/05/24 12:39 Completed HCG Qualitative, Serum Stat Lab 01/05/24 12:39 Completed PT INR [Prothrombin Time INR] Stat Lab 01/05/24 12:39 Completed UA [Urinalysis and Microscopic] Stat Lab 01/05/24 10:53 Completed Medical Decision Narrative: Patient with history and exam per above presenting for evaluation of back pain Diagnoses considered include fracture, soft tissue injury, given patient's symptoms are not overtly reproducible, arrives tachycardic, and does describe pleuritic nature of symptoms, I do consider referred pain from occult pulmonary embolism although thought to be less likely ED workup and treatment included: ED MEDICATIONS Discontinued Medications Generic Name Dose Route Start Last Admin Trade Name Freq PRN Reason Stop Dose Admin Iopamidol 75 ml 01/05/24 13:26 01/05/24 13:28 Iopamidol-370 (76%);100ml Bottle IV 01/05/24 13:27 75 ml ONCE ONE Administration Ketorolac Tromethamine 15 mg 01/05/24 12:12 01/05/24 12:43 Ketorolac 30mg/Ml Vial IV 01/05/24 12:13 15 mg ONCE ONE Administration Sodium Chloride 50 ml 01/05/24 13:26 01/05/24 13:28 0.9 % Sodium Chloride 50 Ml Vial IV 01/05/24 13:27 50 ml ONCE ONE Administration Sodium Chloride 10 ml 01/05/24 13:26 01/05/24 13:28 Sodium Chloride 0.9% 10ml Syr (Rad Only) IV 02/04/24 13:25 10 ml NEEDED PRN Administration Maintain IV Site ORDERS Category Date Time Status CTA Chest [CT angio chest PE protocol] Stat Cat Scan 01/05/24 12:12 Completed CBC w/Auto Diff [Complete Blood Count Auto Diff] Stat Lab 01/05/24 12:39 Completed CMP [Comprehensive Metabolic Panel] Stat Lab 01/05/24 12:39 Completed HCG Qualitative, Serum Stat Lab 01/05/24 12:39 Completed PT INR [Prothrombin Time INR] Stat Lab 01/05/24 12:39 Completed UA [Urinalysis and Microscopic] Stat Lab 01/05/24 10:53 Completed Labs were independently interpreted by me, significant for no acute findings Imaging was independently visualized and interpreted by me, significant for no acute findings. Please refer to radiology report for full details. My clinical impression at this time is most consistent with soft tissue injury I discussed my clinical impression with patient and answered all questions. At this time, the evidence for any other entities in the differential is insufficient to warrant any further testing or ED observation. This was explained to the patient. The patient was advised that persistent or worsening symptoms require further evaluation. I confirmed the patient's understanding of this discussion. Critical Care Critical Care Time Critical Care Time: No
--- NOTE | 2024-01-05 12:12 | CT_ITS ---
PROCEDURE INFORMATION: Exam: CTA Chest With Contrast Exam date and time: 01/05/2024 1:26 PM Age: 33 years old Clinical indication: Pain; Other: L sided throacic pleuritic; Additional info: L sided throacic pleuritic pain TECHNIQUE: Imaging protocol: Computed tomographic angiography of the chest with contrast. Exam focused on the arteries. 3D rendering (Not supervised by radiologist): MIP and/or 3D reconstructed images were created by the technologist. Radiation optimization: All CT scans at this facility use at least one of these dose optimization techniques: automated exposure control; mA and/or kV adjustment per patient size (includes targeted exams where dose is matched to clinical indication); or iterative reconstruction. Contrast material: ISOVUE; Contrast volume: 75 ml; Contrast route: INTRAVENOUS (IV); COMPARISON: No relevant prior studies available. FINDINGS: Pulmonary arteries: Normal. No pulmonary emboli. Aorta: Thoracic aorta is unremarkable. No aortic aneurysm or evidence of aortic dissection. Lungs: Unremarkable. No consolidation. No masses. Pleural spaces: Unremarkable. No pneumothorax. No pleural effusion. Heart: Heart is not significantly enlarged. No significant coronary artery calcifications. No significant pericardial effusion. Lymph nodes: Unremarkable. No enlarged lymph nodes. Bones/joints: Unremarkable. No acute fracture. Soft tissues: There are bilateral augmentation breast implants and place, intact. IMPRESSION: Unremarkable CT examination of the chest. No acute abnormalities.
--- NOTE | 2024-01-05 12:22 | ECG_ITS ---
APPROVED REPORT Exam: Resting ECG HR:94 bpm ECG Measurements Heart Rate 94 AXES AR 153 P 58 QRSd 82 QRS 80 QT 309 T 50 QTc 361 Conclusion SINUS RHYTHM WITH SINUS ARRHYTHMIA NORMAL ECG UNCONFIRMED REPORT Electronically signed by : NANI ROSENBAUM, 01/06/2024 02:57:48
[2024-01-05] MEDS: KETOROLAC 30MG/ML VIAL 15 MG IV (12:43)
[2024-01-05 12:46] LABS: Basophils # 0.1 K/mm3 (0-0.2); Basophils % 0.9 % (0.1-2.0); Eosinophils # 0.1 K/mm3 (0.0-0.4); Hematocrit 44.1 % (37.0-47.0); Hemoglobin 13.9 g/dL (12.2-16.2); Lymphocytes # 2.1 K/mm3 (0.7-4.5); Lymphocytes % 22.7 % (10-50); Mean Corpuscular HGB Conc 31.6 g/dL (31.8-35.4); Mean Corpuscular Hemoglobin 30.5 pg (27.0-31.2); Mean Corpuscular Volume 96.6 fl (81-99); Monocytes # 0.5 K/mm3 (0.1-1.0); Monocytes % 5.3 % (1.7-9.3); Neutrophils # 6.4 K/mm3 (1.8-7.8); Neutrophils % 70.2 % (37.0-80.0); Platelet Count 251 K/mm3 (142-424); Red Blood Count 4.57 M/mm3 (4.20-5.40); Red Cell Distribution Width 14.1 % (11.5-17.5); White Blood Count 9.2 K/mm3 (4.8-10.8)
[2024-01-05 12:51] LABS: Chloride 107 mmol/L (98-107); Sodium 140 mmol/L (136-145)
[2024-01-05 12:52] LABS: Potassium 4.1 mmoL/L (3.5-5.1)
[2024-01-05 12:54] LABS: Alanine Aminotransferase 34 U/L (12-78); Albumin Level 4.1 g/dl (3.5-5.0); Albumin/Globulin Ratio 1.4 (1.1-1.8); Alkaline Phosphatase 93 U/L (38-126); Anion Gap 8.1 mEq/L (5-15); Aspartate Amino Transferase 45 U/L (14-36); Bilirubin,Total 0.5 mg/dl (0.2-1.3); Blood Urea Nitrogen 12 mg/dl (7-17); Carbon Dioxide 29 mmol/L (22.0-30.0); Creatinine Clearance Estimated 133 mL/min (50-200); Estimated Glomerular Filt Rate 83 ml/min (>60); GFR (African American) 100 ML/MIN (>60); INR 0.94 (0.9-1.1); Prothrombin Time 10.2 seconds (10.1-12.5); Total Protein,Serum 7.1 g/dl (6.3-8.2)
[2024-01-05 12:55] LABS: Glucose 99 mg/dl (74-100)
[2024-01-05 13:00] LABS: HCG Qualitative, Serum Negative (Negative)
--- NOTE | 2024-01-05 13:20 | PC.NURSE ---
PT GONE TO RAD VIA WHEELCHAIR
[2024-01-05] MEDS: IOPAMIDOL-370 (76%);100ML BOTTLE 75 ML IV (13:28)
[2024-01-05] MEDS: SODIUM CHLORIDE 0.9% 10ML SYR (RAD ONLY) 10 ML IV (13:28)
[2024-01-05] MEDS: 0.9 % SODIUM CHLORIDE 50 ML VIAL IV (13:28)
--- NOTE | 2024-01-05 13:31 | PC.NURSE ---
PT RETURNED FROM CT
--- NOTE | 2024-01-05 14:19 | PC.NURSE ---
PT PROVIDED WITH ICE WATER
--- NOTE | 2024-01-05 14:41 | PC.NURSE ---
PT AMBULATORY TO BATHROOM
--- NOTE | 2024-01-05 15:20 | PC.NURSE ---
DR MARCUS AT BEDSIDE
== END 2024-01-05 15:45 | disposition home or self-care (01) ==
PROVIDERS: Emergency Provider Emergency Medicine; PCP Internal Medicine
DX: M54.6 Pain in thoracic spine (principal); I49.9 Cardiac arrhythmia, unspecified
CPT/HCPCS: 71275; 80053; 81001; 84703; 85025; 85610; 93005; 96374; 99285; Q9967

== ENCOUNTER 2024-05-13 12:33 | Outpatient (CLI) | payer OTHER, SELFPAY ==
[2024-05-13 20:00] LABS: Thyroid Stimulating Hormone 2.38 uIU/mL (0.465-4.68)
== END 2024-05-13 23:59 | disposition home or self-care (01) ==
LOC: LAB.DROPOF 05-14 12:33
PROVIDERS: PCP Internal Medicine; Visit Provider Internal Medicine
DX: R53.83 Other fatigue (principal)
CPT/HCPCS: 84443

== ENCOUNTER 2025-01-19 10:25 | Outpatient (CLI) | payer OTHER, SELFPAY ==
[2025-01-19 19:02] LABS: Basophils # 0.1 K/mm3 (0-0.2); Basophils % 0.8 % (0.1-2.0); Eosinophils # 0.1 Kmm3 (0.0-0.4); Eosinophils % 1.3 % (0.1-12.0); Hematocrit 42.7 % (37.0-47.0); Hemoglobin 13.8 g/dL (12.2-16.2); Immature Granulocytes # 0.02 10^3uL; Immature Granulocytes % 0.3 %; Lymphocytes # 2.1 K/mm3 (0.7-4.5); Lymphocytes % 27.7 % (10-50); Mean Corpuscular HGB Conc 32.3 g/dL (31.8-35.4); Mean Corpuscular Hemoglobin 30.6 pg (27.0-31.2); Mean Corpuscular Volume 94.7 fl (81-99); Mean Platelet Volume 11.8 fl (7.4-10.4); Monocytes # 0.7 K/mm3 (0.1-1.0); Monocytes % 8.9 % (1.7-9.3); Neutrophils # 4.6 K/mm3 (1.8-7.8); Nucleated Red Blood Cells # 0 10^3/uL; Nucleated Red Blood Cells % 0 %; Platelet Count 282 K/mm3 (142-424); Red Blood Count 4.51 M/mm3 (4.20-5.40); Red Cell Distribution Width 13.7 % (11.5-17.5); Red Cell Distribution Width-SD 47.6 fL; White Blood Count 7.5 K/mm3 (4.8-10.8)
[2025-01-19 19:32] LABS: Alanine Aminotransferase 22 U/L (12-78); Albumin Level 4.2 g/dl (3.5-5.0); Albumin/Globulin Ratio 1.6 (1.1-1.8); Alkaline Phosphatase 96 U/L (38-126); Anion Gap 8.2 mEq/L (5-15); Aspartate Amino Transferase 26 U/L (14-36); Bilirubin,Total 0.3 mg/dl (0.2-1.3); Blood Urea Nitrogen 16 mg/dl (7-17); Calcium 9.5 mg/dl (8.4-10.2); Carbon Dioxide 27 mmol/L (22.0-30.0); Chloride 107 mmol/L (98-107); Estimated Glomerular Filt Rate 114 ml/min (>60); GFR (African American) 138 ML/MIN (>60); Globulin 2.7 g/dL (1.3-3.2); Glucose 95 mg/dl (74-100); Potassium 4.2 mmoL/L (3.5-5.1); Sodium 138 mmol/L (136-145); Total Protein,Serum 6.9 g/dl (6.3-8.2)
[2025-01-19 20:01] LABS: Thyroid Stimulating Hormone 2.45 uIU/mL (0.465-4.68)
[2025-01-19 21:22] LABS: Free T4 (Free Thyroxine) 1.15 ng/dl (0.78-2.19)
== END 2025-01-19 23:59 | disposition home or self-care (01) ==
LOC: LAB.DROPOF 01-20 11:43
PROVIDERS: PCP Nurse Practitioner Acute Care; Visit Provider Nurse Practitioner Acute Care
DX: F41.9 Anxiety disorder, unspecified (principal)
CPT/HCPCS: 80053; 84439; 84443; 85025

== ENCOUNTER 2025-03-04 12:32 | Outpatient (CLI) | payer OTHER, SELFPAY ==
--- OUTSIDE RECORDS SUMMARY | 2025-03-04 12:34 | XMS_ITS | Clinical Summary ---
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 Aprox 20 a day Active ondansetron (ZOFRAN) 4 mg Oral TabletIndicatio ns:excessive vomiting in Take 1 Tablet by mouth every 6 hours as needed for Nausea or Vomiting. Indications: excessive vomiting in 30 Tablet 1 2 Active famotidine (PEPCID) 20 mg Oral TabletIndicatio ns:Heartburn during in second trimester Take 1 Tablet by mouth daily. 30 Tablet 6 2 Active tamsulosin (FLOMAX) 0.4 mg Oral Capsule Take 1 Capsule by mouth daily. 14 Capsule 3 Active Additional Information Patient not taking.Reason: Unable to tolerate, Reported on 12/25/2022 ferrous sulfate 325 mg (65 mg iron) Oral Tablet, Delayed Release (E.C.) Take 1 Tablet by mouth 2 times daily (with meals). 40 Tablet 3 Active norgestimate-et hinyl estradioL (ORTHO-CYCLEN) 0.25-35 mg-mcg Oral TabletIndicatio ns:UTI symptoms Take 1 Tablet by mouth daily. 28 Tablet 6 3 Active Active Problems Problem Noted Date Diagnosed Date care and examination 02/04/2023 Acute cystitis with hematuria 02/04/2023 UTI symptoms 02/04/2023 Negative test 02/04/2023 UTI (urinary tract infection) during 0 02/01/2023 Overview (02/01/2023): Rx 5/16 Repeat culture Encounter for induction of labor 12/18/2022 Vaginal delivery 12/17/2022 ASCUS with positive high risk HPV cervical 07/13 Overview (07/13/2022): 04/2022: Neg 16/18/45--> Colpo done 05/29/22--> no significant findings ~ records requested Chlamydia infection affecting in first trimester 07/13/2022 Overview (07/13/2022): Dx 7 weeks JAYMIE collected 16 weeks--> negative Encounter for supervision of normal in second trimester 07/13/2022 Overview (12/02/2022): TOB @ 16 wks from [facility] pt GS: NIPT nml (per pt)~ awaiting results FELI by US @ 7 wks PNL's nml (antibody ID pending) Anatomy: Sub-optimal; Follow up at 25wk nml EFW 855 49% Flu shot and TDaP advised CBC / GCT ok Obesity affecting , antepartum 07/13/20 Overview (10/11/2022): HgbA1c 5.1 Pregravid BMI 31 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 07/13/2022 Overview (08/02/2022): Hx Anti-C w/ G2 and G3 Antibody: + anti C (too weak to titer) Neg C and E antigen Immunizations Immunization Administration Dates Next Due Influenza Intradermal 07/16/2013 Varicella 04/15/2002 Surgical History Surgery Date Site/Laterality Comments CHOLECYSTECTOMY, LAPAROSCOPIC 09/16/2012 - 09/15/2013 BREAST ENHANCEMENT SURGERY 09/16/2014 - 09/15/2015 TONSILLECTOMY AND ADENOIDECTOMY Medical History Medical History Date Comments Anxiety Restless leg syndrome Anemia Family History Medical History Relation Name Comments Cervical Cancer Mother Relation Name Status Comments Mother Alive Social History Tobacco Use Types Packs/Day Years Used Date Smoking Tobacco: Never Smokeless Tobacco: Never Alcohol Use Standard Drinks/Week Comments Not Currently 0 (1 standard drink = 0.6 oz pur e alcohol) PHQ-2 Answer Date Recorded PHQ-2 Total Score 0 12/17/2022 Sexually Active Control Partners Comments Not Currently Male Comments No Sex and Gender Information Value Date Recorded Sex Assigned at Not on file Legal Sex Female 10:47 PM EDT Gender Identity Not on file Sexual Orientation Not on file Obstetrics History Para Term AB IAB SAB Ectopic Multiple Livin g Live Births 7 4 4 3 2 1 0 4 4 Date Outcome GA Total Labor Labor/2nd/3rd Weight Sex Type Anes PTL Aleshia A1 A5 Name Clin 010 Term 40w 1d 7 lb 5 oz (3.317 kg) M Vag-S pont Epidur al Livin g 2011 Ectopic 013 Term 40w 1d 7 lb 5 oz (3.317 kg) M Vag-S pont Epidur al Livin g 2013 SAB 016 Term 40w 1d 8 lb 3 oz (3.714 kg) F Vag-S pont Epidur al Livin g 023 Term 39w 1d 0h 08m 0h 08m 7 lb 10.4 oz (3.47 kg) M Vag-S pont Epidur al N Livin g 8 9 FRANK BE,JAMAL Y BABY Krame r, Kamini Sorensen, [facility] Delivery Location:[facility] ([facility]) Last Filed Vital Signs Vital Sign Reading Time Taken Comments Blood Pressure 108/72 02/01/2023 10:52 AM EDT Pulse 99 12/31/2022 10:12 AM EDT Temperature 36.2 C (97.2 F) 12/31/2022 10:12 AM EDT Respiratory Rate 18 12/20/2022 4:38 PM EDT Oxygen Saturation 99% 12/31/2022 10:12 AM EDT Inhaled Oxygen Concentration - - Weight 93.2 kg (205 lb 6.4 oz) 02/01/2023 10:52 AM EDT Height 172.7 cm (5' 8 ) 02/01/2023 10:52 AM EDT Body Mass Index 31.23 02/01/2023 10:52 AM EDT Plan of Treatment Health Maintenance Due Date Last Done Comments Annual Wellness Exam 1993 DTaP/TDaP/Td (1 - Tdap) 2009 Hepatitis B Vaccine (1 of 3 - 19+ 3-dose series) 2009 HPV/Pap Cotest 2020 COVID-19 Vaccine (3 - 2023-2 5 season) 2024 09/28/2021, 09/04/2021 Influenza Vaccine (Season Ended) 2025 07/16/2013 Cervical Cancer Screening 08/30/2025 Pap Smear 08/30/2025 08/30/2022 Meningococcal B Vaccine Aged Out No l onger eligible based on patient's age to complete this topic Pneumococcal Vaccine 0-49 Aged Out No longer eligible based on patient's age to complete this topic Insurance [facility] [address] [employer] [place] [address] Advance Directives For more information, please contact: [phone] * Full Code (Latest Code Status on File) Date Activated Date Inactivated Comments 12/17/2022 11:20 PM 12/20/2022 11:44 PM
--- OUTSIDE RECORDS SUMMARY | 2025-03-04 12:34 | XMS_ITS | Clinical Summary ---
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 Name Role Phone Unavailable Primary Care Provider Unavailabl e Allergies No known active allergies Medications No known medications Active Problems Problem Noted Date Diagnosed Date Asymptomatic bacteriuria 09/19/2023 Basal cell carcinoma 09/19/2023 Chlamydial cervicitis 09/19/2023 Acute cystitis with hematuria 02/04/2023 UTI symptoms 02/04/2023 Vaginal delivery 12/17/2022 ASCUS with positive high risk HPV cervical 07/13 Overview (02/08/2023): 04/2022: Neg 16/18/45--> Colpo done 05/29/22--> no significant findings ~ records requested Chlamydia infection affecting in first trimester 07/13/2022 Overview (02/08/2023): Dx 7 weeks JAYMIE collected 16 weeks--> negative UTI (urinary tract infection) during 1 Overview (02/08/2023): Hx Anti-C w/ G2 and G3 Antibody: + anti C (too weak to titer) Neg C and E antigen Rx 5/16 Repeat culture Obesity affecting , antepartum 07/13/20 Overview (02/08/2023): HgbA1c 5.1 Pregravid BMI 31 Immunizations Immunization Administration Dates Next Due Influenza, seasonal, intradermal, preservative f ree 07/16/2013 [employer] COVID-19 Vaccine (Purple Cap) 12 + 09/28/2021,09/04/2021 Varicella 04/15/2002 Family History Medical History Relation Name Comments Autoimmune disease Father Colon cancer Father Diabetes Father Melanoma Father Pancreatic cancer Father Cervical cancer Mother Diabetes Mother Heart disease Mother Relation Name Status Comments Father Mother Social History Tobacco Use Types Packs/Day Years Used Date Smoking Tobacco: Never Smokeless Tobacco: Never Tobacco Cessation:Counseling Given: Not Answered Alcohol Use Standard Drinks/Week Comments Not Currently 0 (1 standard drink = 0.6 oz pur e alcohol) PHQ-2 Answer Date Recorded Patient Health Questionnaire-2 Score 0 09/19/2023 Comments No Sex and Gender Information Value Date Recorded Sex Assigned at Not on file Legal Sex Female 1:46 PM EDT Gender Identity Not on file Sexual Orientation Not on file Last Filed Vital Signs Vital Sign Reading Time Taken Comments Blood Pressure 99/65 09/19/2023 2:29 PM EST Pulse 88 09/19/2023 2:29 PM EST Temperature 37 C (98.6 F) 09/19/2023 2:29 PM EST Respiratory Rate 14 09/19/2023 2:29 PM EST Oxygen Saturation 96% 09/19/2023 2:29 PM EST Inhaled Oxygen Concentration - - Weight 90.7 kg (199 lb 15.3 oz) 09/19/2023 2:29 PM EST Height 170.2 cm (5' 7 ) 09/19/2023 2:29 PM EST Body Mass Index 31.32 09/19/2023 2:29 PM EST Plan of Treatment Health Maintenance Due Date Last Done Comments [facility]-HIV Screening 1990 [facility]-Hepatitis C Screening 1990 [facility]-Infant/Child/Adol SDOH Screenings 1990 [facility]-Varicella Vaccines (2 of 2 - 2-dose childhood series) 07/08/2002 04/15/2002 [facility]- SDOH Screenings 2008 [facility]-Adult SDOH Screenings 2008 [facility]-DTaP,Tdap,and Td Vaccines (1 - Tdap) 2009 [facility]-Hepatitis B Vaccines (1 of 3 - 19+ 3-dose series) 2009 [facility]-Pneumococcal Vaccine: Pediatrics (0 to 5 Years) and At-Risk Patients (6 to 49 Years) (1 of 2 - PCV) 2009 [facility]-Zoster Vaccines (1 of 2) 2009 04/15/2002 [id number] Vaccine (3 - Pfizer risk series) 10/26/2021 09/28/2021, 09/04/2021 [facility]-Depression Screening 09/19/2024 09/19/2023 [facility]-Influenza Vaccine (Season Ended) 2025 07/16/2013 [facility]-Pap Smear 09/20/2026 09/20/2023, 08/30/2022 [facility]-Cervical Cancer Screening 09/20/2028 [facility]-HPV/Cotest 09/20/2028 09/20/2023 [facility]-Obesity Intervention Completed 024, 09/19/2023, 03/08/2023, Additional history exists HPV Vaccines Aged Out No longer eligi ble based on patient's age to complete this topic [facility]-HIB Vaccines Aged Out No longer e ligible based on patient's age to complete this topic [facility]-Hepatitis A Vaccines Aged Out No longer eligible based on patient's age to complete this topic [facility]-IPV Vaccines Aged Out No longer e ligible based on patient's age to complete this topic [facility]-Rotavirus Vaccines Aged Out No lo nger eligible based on patient's age to complete this topic Procedures Procedure Name Priority Date/Time Associated Diagnosis Comments PAP TEST - CYTOLOGY Routine 09/20/2023 9:08 AM EST Encounter for gynecological examination (general) (routine) without abnormal findings from Last 3 Months or Most Recently Relevant to Health Maintenance Results * Pap Test (09/20/2023 9:08 AM EST) Case Report Cytology Case: [id number] Authorizing Provider: Yenifer Virgen APRN, DNP Collected: 09/20/2023 0908 Ordering Location: Obstetrics & Gynecology Received: 09/20/2023 0913 First Screen: Bryce Jasso Specimen: ThinPrep Pap Test, Liquid-Based Cervical/Vaginal 09/25/2023 9:55 AM EST [facility] Interpretation NEGATIVE FOR INTRAEPITHELIAL LESION OR MALIGNANCY 09/25/2023 9:55 AM EST [facility] at 0955 EST Specimen Adequacy Satisfactory for evaluation; endocervical/foster sformation zone component present. Slide imaged by the ThinPrep Imaging system and selected 22 ramirez reviewed then full manual screening. 09/25/2023 9:55 AM EST [facility] Cervical cytology is a screening test primarily for squamous cancers and precursors and has associated false negative and positive results. New technologies such as liquid based sampling may decrease but will not eliminate all false negative results. Regular screening and follow-up of unexplained clinical signs and symptoms are recommended to minimize false negative results. Please see the ASCCP website (www.asccp.org)fo r followup recommendations. If HPV testing was requested, correlation with the results is suggested (please call Microbiology at [phone] for results). 09/25/2023 9:55 AM EST [facility] Menstrual Status Cyclic 09/25/19 9:55 AM EST [facility] Contraceptive History Not Applicable 09/25/2023 9:55 AM [facility] Screening Type Routine Screen 2023 9:55 AM EST [facility] High Risk? No 09/25/2023 9:55 AM [facility] HPV Testing Requested? Request HPV Testing Regardless of Pap Test Findings 09/25/2023 9:55 AM [facility] Previous Cancer History No 09/25/2023 9:55 AM [facility] Clinical Information Z01.419 - Encounter for gynecological examination (general) (routine) without abnormal findings [ICD-10-CM] 09/25/2023 9:55 AM EST [facility] Last Menstrual Period 08/20/2023 09/25/2023 9:55 AM [facility] Swab Vaginal and cervical cytologic material / Unknown Non-blood Collection / Unknown 09/20/2023 9:08 AM EST 09/20/2023 9:13 AM EST us Yenifer Virgen APRN, DNP LAB CYTOLOGY ORDERABLES Final Result [facility] [address] [place] [id number] from Last 3 Months or Most Recently Relevant to Health Maintenance Insurance [employer]
--- NOTE | 2025-03-04 13:00 | US_ITS ---
PROCEDURE: US TRANSVAGINAL CLINICAL INDICATION: DUB COMPARISON: No exams were available for comparison FINDINGS: Transvaginal sonographic images of the pelvis were obtained. UTERUS: 9.7 cm x 6.0cmx 4.4cm anteverted with a combined endometrial thickness of 3.2mm. LEFT OVARY: 0.7 cmx2.5cmx2.8cm with a volume of 13.2ml. There are multiple small peripheral follicles giving the ovary a polycystic appearance RIGHT OVARY: 2.2cmx 2.8 cmx1.15 with a volume of 4.9ml. There are several small peripheral follicles. Both ovaries are seen and appear normal. Doppler flow to both ovaries are seen. There is no fluid in the cul-de-sac. IMPRESSION: 1. Anteverted uterus slightly enlarged in size and normal in shape. The endometrium is thin measuring 3.2 mm. 2. Both ovaries are seen and appear normal. The left ovary is more polycystic. 3. No fluid in the cul-de-sac. Dictated by: Thomas Shepherd MD 03/04/2025 16:37 Thomas Shepherd MD in OV 03/04/2025 16:37
== END 2025-03-04 23:59 | disposition home or self-care (01) ==
LOC: RAD 12:33
PROVIDERS: PCP Nurse Practitioner; Visit Provider Nurse Practitioner
DX: E28.2 Polycystic ovarian syndrome (principal); N85.2 Hypertrophy of uterus; R93.89 Abnormal findings on diagnostic imaging of other specified body structures
CPT/HCPCS: 76830

== ENCOUNTER 2025-08-03 12:11 | Outpatient (CLI) | payer OTHER, SELFPAY ==
[2025-08-03 12:32] LABS: Hematocrit 41.7 % (37.0-47.0); Hemoglobin 13.9 g/dL (12.2-16.2); Mean Corpuscular HGB Conc 33.3 g/dL (31.8-35.4); Mean Corpuscular Hemoglobin 30.4 pg (27.0-31.2); Mean Corpuscular Volume 91.2 fl (81-99); Platelet Count 306 K/mm3 (142-424); Red Blood Count 4.57 M/mm3 (4.20-5.40); White Blood Count 7.6 K/mm3 (4.8-10.8)
[2025-08-03 13:05] LABS: Total Cells Counted 100
[2025-08-03 13:07] LABS: RBC Morphology Normal
[2025-08-03 13:22] LABS: Albumin Level 4.7 g/dl (3.5-5.0); Carbon Dioxide 28 mmol/L (22.0-30.0)
[2025-08-03 13:28] LABS: Alanine Aminotransferase 18 U/L (12-78); Albumin/Globulin Ratio 1.7 (1.1-1.8); Alkaline Phosphatase 86 U/L (38-126); Anion Gap 9.9 mEq/L (5-15); Aspartate Amino Transferase 22 U/L (14-36); Bilirubin,Total 0.6 mg/dl (0.2-1.3); Blood Urea Nitrogen 11 mg/dl (7-17); Calcium 9.5 mg/dl (8.4-10.2); Chloride 102 mmol/L (98-107); Cholesterol 138 mg/dl (140-200); Creatinine,Serum 0.70 mg/dl (0.52-1.04); Estimated Glomerular Filt Rate 96 ml/min (>60); GFR (African American) 116 ML/MIN (>60); Globulin 2.8 g/dL (1.3-3.2); Glucose 92 mg/dl (74-100); HDL Cholesterol 48 mg/dl (40-60); Potassium 3.9 mmoL/L (3.5-5.1); Sodium 136 mmol/L (136-145); Total Protein,Serum 7.5 g/dl (6.3-8.2); Triglycerides 60 mg/dl (30-150)
[2025-08-03 13:39] LABS: Hemoglobin A1C 5.2 % (4.0-6.0)
[2025-08-03 13:49] LABS: Thyroid Stimulating Hormone 1.84 uIU/mL (0.465-4.68)
[2025-08-04 03:48] LABS: FSH 5.3 mIU/mL (.)
[2025-08-04 07:16] LABS: Insulin Level Total 7.9 uIU/mL (2.6-24.9); Testosterone,Total 15 ng/dL (8-60)
== END 2025-08-03 23:59 | disposition home or self-care (01) ==
LOC: LAB 12:11
PROVIDERS: PCP Nurse Practitioner; Visit Provider Obstetrics & Gynecology
DX: N93.9 Abnormal uterine and vaginal bleeding, unspecified (principal); E66.9 Obesity, unspecified; F33.9 Major depressive disorder, recurrent, unspecified; F41.9 Anxiety disorder, unspecified; N39.9 Disorder of urinary system, unspecified; E55.9 Vitamin D deficiency, unspecified
CPT/HCPCS: 36415; 80053; 80061; 82652; 82670; 83001; 83036; 83525; 84144; 84146; 84403; 84443; 85007; 85014; 85018; 85048; 85049